=== PATIENT | male | born 1995 | race Caucasian/White ===

== ENCOUNTER 2023-07-05 14:34 | Emergency (ER) | payer OTHER ==
[2023-07-05 15:12] VITALS: BP 130/83; PULSE 68; RESP 16; TEMP 98; BMI 22.9
== END 2023-07-05 16:10 | disposition home or self-care (01) ==
LOC: FER 14:34
DX: S93.432A Sprain of tibiofibular ligament of left ankle, initial encounter (principal); M25.572 Pain in left ankle and joints of left foot; X50.1XXA Overexertion from prolonged static or awkward postures, initial encounter; Y93.39 Activity, other involving climbing, rappelling and jumping off
CPT/HCPCS: 73610-TC-LT-FY; 99283-25